=== PATIENT | male | born 1950 | race Two or more races ===

== ENCOUNTER 2019-12-01 01:03 | Emergency (ER) | payer SELFPAY ==
[~2019-12-01] VITALS: Ht 182.9 cm; Wt 86.0 kg
[2019-12-01 05:45] VITALS: BP 144/71
== END 2019-12-01 05:46 | disposition home or self-care (01) ==
LOC: ER 01:03
DX: S80.12XA Contusion of left lower leg, initial encounter (principal); S80.02XA Contusion of left knee, initial encounter; E11.9 Type 2 diabetes mellitus without complications; Z86.73 Personal history of transient ischemic attack (TIA), and cerebral infarction without residual deficits; W01.0XXA Fall on same level from slipping, tripping and stumbling without subsequent striking against object, initial encounter; Y93.89 Activity, other specified; Y92.89 Other specified places as the place of occurrence of the external cause; Y99.8 Other external cause status
CPT/HCPCS: 72170; 73552; 73560; 73590; 73600; 99284